=== PATIENT | male | born 1965 | race Caucasian/White ===

== ENCOUNTER 2020-12-28 12:45 | Day surgery (SDC) | payer OTHER ==
[2020-12-28] VITALS (8 sets, daily range): BP systolic 122–144; BP diastolic 59–73; PULSE 64–82; TEMP 98–9802
[~2020-12-28] VITALS: Ht 188 cm; Wt 103.6 kg
[2020-12-28] MEDS ORDERED: PRINIVIL40 MG PO (16:25)
[2020-12-28] MEDS ORDERED: HCTZ 25MG TAB25 MG PO (16:26)
[2020-12-28] MEDS ORDERED: MOTRIN 600600 MG/TAB PO (17:51)
[2020-12-28] MEDS ORDERED: NORCO 325 MG-51 TAB PO (17:52)
--- NOTE | 2020-12-28 19:03 | NUR ---
Patient post op lap appy at 1820. See assessment. Abdomen soft, non tender, non distended. Bowel sounds hypoactive x4 quads. Lap sites to abdomen with edges well approximated, no redness or drainage noted.
--- NOTE | 2020-12-28 20:20 | NUR ---
PT HAS VOIDED, EATEN, PAIN CONTROLLED. READY FOR DISCHARGE. REMOVED SL FROM LEFT FOREARM, ANGIOCATH INTACT. REVIEWED DISCHARGE INSTRUCTIONS WITH PT AND SPOUSE, VERBALIZED UNDERSTANDING.
--- NOTE | 2020-12-28 20:32 | NUR ---
DISCHARGED VIA W/C TO PRIVATE CAR, PERONAL BELONGINGS AND COPY OF DISCHARGE INSTRUCTIONS SENT WITH PATIENT.
== END 2020-12-28 20:20 | disposition home or self-care (01) ==
LOC: SDCO 12:45 → SURG 18:21 → SDCO 20:20
DX: K35.80 Unspecified acute appendicitis (principal); I10 Essential (primary) hypertension; F17.210 Nicotine dependence, cigarettes, uncomplicated; Z85.828 Personal history of other malignant neoplasm of skin; Z79.899 Other long term (current) drug therapy
CPT/HCPCS: OP; J0690; J1100; J2405; J2704; J3010; J7120